=== PATIENT | male | born 1985 | race African-American/Black ===

== ENCOUNTER 2016-10-11 20:24 | Emergency (ER) | payer OTHER ==
[~2016-10-11] VITALS: Ht 172.7 cm; Wt 72.7 kg
[2016-10-11 20:51] VITALS: BP 140/78
== END 2016-10-11 21:06 ==
LOC: EMS 20:29
DX: G40.909 Epilepsy, unspecified, not intractable, without status epilepticus (principal); F20.9 Schizophrenia, unspecified
CPT/HCPCS: 99285